=== PATIENT | female | born 2000 | race American Indian/Alaskan Native ===

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

== ENCOUNTER 2021-01-01 19:38 | Outpatient (CLI) | payer BC ==
[2021-01-01] MEDS ORDERED: LACTATED RINGERS 500 ML IV ONE (19:53)
[2021-01-01] MEDS ORDERED: LACTATED RINGERS 1,000 ML ONE (20:00)
[2021-01-01 20:10] VITALS: BP 109/59
[2021-01-01] MEDS ORDERED: ACETAMINOPHEN 500 MG TAB PO ONE (20:20)
[2021-01-01 20:33] LABS: Bilirubin,Urine NEG (Negative); Blood,Urine NEG (Negative); Color,Urine Yellow (Yellow); Mucus,Urine FEW /HPF; Protein,Urine <15 mg/dL mg/dL (Negative); Urobilinogen,Urine < 2.0 mg/dL (<2.0)
[2021-01-01] MEDS ORDERED: METOCLOPRAMIDE 10 MG TAB PO ONE (21:43)
[2021-01-01] MEDS ORDERED: diphenhydrAMINE 50 MG CAP PO ONE (21:43)
== END 2021-01-01 22:57 | disposition home or self-care (01) ==
LOC: APU 19:38 → TRG 19:38
PROVIDERS: ATTEND Obstetrics & Gynecology
DX: O62.9 Abnormality of forces of labor, unspecified (principal); O26.892 Other specified pregnancy related conditions, second trimester; R51.9 Headache, unspecified; R53.1 Weakness; Z3A.25 25 weeks gestation of pregnancy
CPT/HCPCS: 59025; 81001; A9270; J7120; 96360

== ENCOUNTER 2021-02-23 13:58 | Outpatient (CLI) | payer BC, MEDICAID ==
[2021-02-23] MEDS ORDERED: LACTATED RINGERS 1,000 ML IV ONE (14:25)
[2021-02-23] MEDS ORDERED: HYDROcodone/ACETAMINOPHEN 10-325MG TAB PO PRN (15:02)
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
[2021-02-23 18:07] VITALS: BP 125/63
== END 2021-02-23 18:13 | disposition home or self-care (01) ==
LOC: TRG 13:58 → APU 14:00 → TRG 18:13
PROVIDERS: ATTEND Obstetrics & Gynecology
DX: Z34.93 Encounter for supervision of normal pregnancy, unspecified, third trimester (principal); Z3A.32 32 weeks gestation of pregnancy
CPT/HCPCS: 59025; 76815; 76819

== ENCOUNTER 2021-06-01 11:15 | Emergency (ER) | payer BC, MEDICAID ==
--- NOTE | 2021-06-01 12:07 | Emergency Department Report ---
HPI - General Chief Complaint: Vaginal Bleeding Time Seen by Provider: 06/01/21 11:52 - HPI HPI: Room 38 The patient is a 20-year-old female present with a chief complaint of vaginal bleeding. Patient is status post 04/25/2021 states she had some vaginal bleeding since giving . Patient states his vaginal bleeding stopped approximately 1 week ago however 3 days ago she developed vaginal bleeding that felt similar to her normal cycle however yesterday the bleeding became heavier with her going through approximately 16 pads in a day. The patient contacted her [employer] and was advised to go to an urgent care or emergency department. Patient denies pain of any type or fever. The patient is not currently breast-feeding ED Past Medical Hx - Past Medical History Hx Sickle Cell Disease: No (sickle cell trait) - Surgical History Additional Surgical History: , pilonidal cyst - Family History Family history: no significant - Social History Smoking Status: Never Smoker Substance Use Type: None (Denies illicit drug use), Alcohol (Occasional) - Medications Home Medications: Home Medications Medication Instructions Recorded Confirmed Last Taken Type Butalb/Acetaminophen/Caffeine 1 cap PO Q8HR PRN #20 cap 09/08/19 Unknown Rx [Fioricet 50-300-40 mg CAP] Methylergonovine [Methergine] 0.2 mg PO Q8HR #15 tablet 06/01/21 Unknown Rx ED Review of Systems ROS: Stated complaint: VAGINAL BLEEDING Other details as noted in HPI Constitutional: denies: fever Eyes: denies: eye pain ENT: denies: throat pain Respiratory: no symptoms reported Cardiovascular: denies: chest pain Endocrine: no symptoms reported Gastrointestinal: denies: abdominal pain Genitourinary: abnormal menses Musculoskeletal: denies: back pain Neurological: denies: headache Physical Exam - Physical Exam Vital Signs: Vital Signs 06/01/21 11:22 Temperature 98.6 F Pulse Rate 96 H Respiratory 16 Rate Blood Pressure 107/70 O2 Sat by Pulse 92 Oximetry Physical Exam: GENERAL: The patient is well-developed well-nourished female lying on stretcher not appearing to be in acute distress. [] HEENT: Normocephalic. Atraumatic. Extraocular motions are intact. Patient has moist mucous membranes. NECK: Supple. Trachea midline CHEST/LUNGS: Clear to auscultation. There is no respiratory distress noted. HEART/CARDIOVASCULAR: Regular. There is no tachycardia. There is no gallop rub or murmur. ABDOMEN: Abdomen is soft, nontender. Patient has normal bowel sounds. There is no abdominal distention. SKIN: There is no rash. There is no edema. There is no diaphoresis. NEURO: The patient is awake, alert, and oriented. The patient is cooperative. The patient has no focal neurologic deficits. The patient has normal speech. GCS 15 MUSCULOSKELETAL: There is no evidence of acute injury. Pelvic: Approximately 50 mL dark red blood in the vaginal vault. Does not return briskly when cleared with swabs ED Course Vital Signs 06/01/21 11:22 Temperature 98.6 F Pulse Rate 96 H Respiratory 16 Rate Blood Pressure 107/70 O2 Sat by Pulse 92 Oximetry - Consultations Consultation #1: 06/01/21 14:22 [employer] called 06/01/21 14:[address] Collins-recommends Methergine 0.2 mg 3 times daily x5 days and have patient follow-up this week ED Medical Decision Making - Lab Data Result diagrams: 06/01/21 12:13 06/01/21 12:13 Laboratory Tests 06/01/21 06/01/21 06/01/21 12:13 12:13 12:13 WBC 4.8 RBC 4.57 Hgb 11.9 Hct 37.1 MCV 81 MCH 26 L MCHC 32 RDW 15.8 H Plt Count 223 Lymph % (Auto) 48.2 H [place] % (Auto) 6.9 Eos % (Auto) 3.4 Baso % (Auto) 0.6 Lymph # (Auto) 2.3 [place] # (Auto) 0.3 Eos # (Auto) 0.2 Baso # (Auto) 0.0 Seg Neutrophils % 40.9 Seg Neutrophils # 2.0 PT 13.5 INR 0.93 APTT 34.3 Sodium 140 Potassium 3.8 Chloride 104.4 Carbon Dioxide 23 Anion Gap 16 BUN 10 Creatinine 0.6 Estimated GFR > 60 BUN/Creatinine Ratio 17 Glucose 84 Calcium 8.9 Total Bilirubin 0.30 AST 11 ALT 8 Alkaline Phosphatase 82 Total Protein 7.9 Albumin 4.0 Albumin/Globulin Ratio 1.0 - Radiology Data Radiology results: report reviewed (Pelvic ultrasound), image reviewed (Pelvic ultrasound) [address] [address] Ultrasound Report Signed Patient: VIRGINIA SUE MR#: [id number] : 2000 Acct:[id number] Age/Sex: 20 / F ADM Date: 06/01/21 Loc: ED Attending Dr: Ordering Physician: DOMI LEON MD Date of Service: 06/01/21 Procedure(s): US transvaginal Accession Number(s): [id number] cc: DOMI LEON MD ULTRASOUND PELVIS INDICATION: Vaginal bleeding, status post one month ago. TECHNIQUE: Transabdominal and Transvaginal. Duplex Color Doppler used: Yes. COMPARISON: Limited OB ultrasound from 02/23/2021. FINDINGS: Uterus: Present. Size: 8.3 x 8.2 x 5.7 cm. Endometrial complex: Thickened, measuring 1.5 cm. No other significant abnormality. Mass lesions: None. Additional findings: None. Right Ovary: Size: 4.0 x 4.4 x 2.1 cm Blood flow: Normal. Cyst or mass: None. Left Ovary: Size: 3.9 x 2.1 x 4.9 cm Blood flow: Normal. Cyst or mass: None. Urinary Bladder: Normal. Free Fluid: None. Additional Findings: None. IMPRESSION: 1. No acute sonographic abnormality of the pelvis. 2. Mild thickening of the individual complex is expected in a patient of this age. Signer Name: Graham Rothman MD Signed: 06/01/2021 1:32 PM Workstation Name: [id number] Transcribed By: [place] Dictated By: Graham Rothman MD Electronically Authenticated By: Graham Rothman MD Signed Date/Time: 06/01/21 1332 DD/ 1329 TD/TT: Print Cancel - Differential Diagnosis Menorrhagia Critical care attestation.: If time is entered above; I have spent that time in minutes in the direct care of this critically ill patient, excluding procedure time. ED Disposition Clinical Impression: hemorrhage of vagina Disposition: 01 HOME / SELF CARE / HOMELESS Is pt being admited?: No Does the pt Need Aspirin: No Condition: Stable Instructions: Hemorrhage Additional Instructions: Return to the emergency department should you develop worsening symptoms, inability to tolerate food or liquids, high fever or any other concerns Prescriptions: Methylergonovine [Methergine] 0.2 mg PO Q8HR #15 tablet Referrals: Dr. Alicea, [facility] [employer] [Other] - 2-3 Days Time of Disposition: 14:31
[2021-06-01 12:37] LABS: Basophils % (Auto) 0.6 % (0.0-1.8); Eosinophils # (Auto) 0.2 K/mm3 (0.0-0.4); Eosinophils % (Auto) 3.4 % (0.0-4.3); Hematocrit 37.1 % (30.3-42.9); Hemoglobin 11.9 gm/dl (10.1-14.3); Lymphocytes # (Auto) 2.3 K/mm3 (1.2-5.4); Lymphocytes % (Auto) 48.2 % (13.4-35.0); Mean Corpuscular HGB Conc 32 % (30-34); Mean Corpuscular Volume 81 fl (79-97); Monocytes # (Auto) 0.3 K/mm3 (0.0-0.8); Monocytes % (Auto) 6.9 % (0.0-7.3); Platelet Count 223 K/mm3 (140-440); Red Blood Count 4.57 M/mm3 (3.65-5.03); Red Cell Distribution Width 15.8 % (13.2-15.2)
[2021-06-01 12:45] LABS: INR 0.93 (0.87-1.13)
[2021-06-01 12:50] LABS: Partial Thromboplastin Time 34.3 Sec. (24.2-36.6)
[2021-06-01 12:52] LABS: Alanine Aminotransferase 8 units/L (7-56); Blood Urea Nitrogen 10 mg/dL (7-17); Calcium 8.9 mg/dL (8.4-10.2); Hemolysis Index 1
[2021-06-01 12:54] LABS: BUN/Creatinine Ratio 17
--- NOTE | 2021-06-01 13:37 | Ultrasound Report ---
ULTRASOUND PELVIS INDICATION: Vaginal bleeding, status post one month ago. TECHNIQUE: Transabdominal and Transvaginal. Duplex Color Doppler used: Yes. COMPARISON: Limited OB ultrasound from 02/23/2021. FINDINGS: Uterus: Present. Size: 8.3 x 8.2 x 5.7 cm. Endometrial complex: Thickened, measuring 1.5 cm. No other significant abnormality. Mass lesions: None. Additional findings: None. Right Ovary: Size: 4.0 x 4.4 x 2.1 cm Blood flow: Normal. Cyst or mass: None. Left Ovary: Size: 3.9 x 2.1 x 4.9 cm Blood flow: Normal. Cyst or mass: None. Urinary Bladder: Normal. Free Fluid: None. Additional Findings: None. IMPRESSION: 1. No acute sonographic abnormality of the pelvis. 2. Mild thickening of the individual complex is expected in a patient of this age. Signer Name: Graham Rothman MD Signed: 06/01/2021 1:32 PM Workstation Name: [id number]
[2021-06-01 14:50] VITALS: BP 114/76
== END 2021-06-01 14:49 | disposition home or self-care (01) ==
LOC: ED 11:15
DX: O72.1 Other immediate postpartum hemorrhage (principal); F10.20 Alcohol dependence, uncomplicated
CPT/HCPCS: 36415; 76830; 76856; 80053; 85025; 85610; 85730; 99283